=== PATIENT | male | born 1995 | race Caucasian/White ===

== ENCOUNTER 2020-04-10 15:40 | Emergency (ER) | payer OTHER ==
[~2020-04-10] VITALS: Ht 165.1 cm; Wt 59.0 kg
[2020-04-10 16:35] VITALS: BP 112/55
== END 2020-04-10 16:35 | disposition home or self-care (01) ==
LOC: M.ERS 15:40
DX: J06.9 Acute upper respiratory infection, unspecified (principal); Z20.828 Contact with and (suspected) exposure to other viral communicable diseases